=== PATIENT | male | born 1955 | race Hispanic/Latino ===

== ENCOUNTER → 2021-07-21 11:56 | Outpatient (CLI) | payer OTHER, SELFPAY ==
[2021-07-23 11:32] LABS: COVID19 Sendout Not Detected (Not Detect)
== END ==
PROVIDERS: Visit Provider Nurse Practitioner
DX: Z20.822 Contact with and (suspected) exposure to COVID-19 (principal)
CPT/HCPCS: 87635

== ENCOUNTER 2021-07-24 08:24 | Day surgery (SDC) | payer OTHER, SELFPAY ==
[2021-07-17 07:43] VITALS: BMI 25.2
[2021-07-24] VITALS (12 sets, daily range): BP systolic 94–165; BP diastolic 58–98; PULSE 56–88; RESP 14–18; TEMP 35.9–37.5; O2SAT 91–98; BMI 25.2
--- NOTE | 2021-07-24 06:09 | DI.RAD.S_ITS ---
PROCEDURE: XR KNEE LT 1TO2V INDICATIONS: post op total knee TECHNIQUE: 2 view(s) of the knee acquired. COMPARISON: None. FINDINGS: Bones: Patient is status post knee joint arthroplasty. Hardware components are in expected positions. Visualized bony structures are intact. Soft tissues: Overlying postoperative changes are noted. IMPRESSION: No significant abnormality. Dictated by: Axel Basilio M.D. on 07/24/2021 at 12:29 Approved by: Axel Basilio M.D. on 07/24/2021 at 12:30
[2021-07-24] MEDS: CELECOXIB 200 MG CAPSULE PO (08:50)
[2021-07-24] MEDS: PREGABALIN 75 MG CAPSULE PO (08:51)
[2021-07-24] MEDS: ACETAMINOPHEN 325 MG TABLET 975 MG PO (08:51)
[2021-07-24] MEDS: LACTATED RINGERS 1,000 ML 42 ML IV (08:57)
--- NOTE | 2021-07-24 09:08 | SUR.PREOP ---
ZOFRAN AND DECADRON NOT GIVEN PER ANESTHESIA. THESE WILL BE GIVEN IN OR.
--- NOTE | 2021-07-24 09:32 | PM.PREOP ---
Pre-operative Note COVID-19 COVID-19 status: Negative Result date/Date tested (Pos, Neg/Pending): 07/21/21 Interval Note History & Physical reviewed/Exam performed by Physician: Yes Changes to H&P: No
[2021-07-24] MEDS: CEFAZOLIN 1 GM VIAL 2 GM IV (09:57)
--- NOTE | 2021-07-24 10:16 | SUR.OPER ---
Supine on padded OR bed. Pillow under head, arms secured on padded armboards <90 degree abduction. Safety belt across torso. Non-operative leg secured with tape over blanket over lower leg. Operative leg secured in [place].
[2021-07-24] MEDS: BUPIVACAINE LIPOSOME 266 MG/20 ML VIAL INJ (10:20)
[2021-07-24] MEDS: TRANEXAMIC ACID 1,000 MG VIAL 1000 MG INJ ×2 (10:21→10:55)
[2021-07-24] MEDS: BUPIVACAINE 0.25% (PF) 60 ML, EPINEPHrine 0.3 MG INJ (10:21)
[2021-07-24] MEDS: MORPHINE 4 MG/ML INJ INJ (10:21)
--- NOTE | 2021-07-24 11:27 | P.OP_ITS ---
Operative Date/Time/Diagnoses Date of procedure: 07/24/21 Time of procedure: 11:28 Pre-op diagnosis: Left knee osteoarthritis Post-op diagnosis: same Procedure & Clinicians Procedure: Left total knee replacement Same procedure as scheduled: Yes Indications: The patient has had progressively worsening left knee pain with radiographic changes consistent with arthritis after an injury at work. Non- operative management has failed and the patient has requested total knee replacement. The risks, benefits and alternatives to surgery were discussed with the patient prior to proceeding. Risks discussed included, but were not limited to, failure to relieve pain, stiffness, infection, nerve damage, deep venous thrombosis, pulmonary embolism, stroke, coma, heart attack, permanent paralysis and , as well as the potential need for eventual revision of the prosthetic. Surgeon: Miguel Ángel Claire Dyed Yarn Operator: Brigette Escudero Click Yes if Unassisted: No Anesthesia Type: General, Spinal and Local Operative Notes Findings: Significant medial compartment osteoarthritis with bone exposed on both the tibia and the femur, moderately severe patellofemoral and lateral degenerative changes. Closure Type: primary Specimen(s): none sent Prosthetic devices, grafts, tissues, transplants, or devices: Implants used in this procedure were manufactured by the [employer] and included the BCS II Journey total knee replacement with a size 6 left Oxinium femoral component, size 5 left non porous tibial base plate, a 9 mm cross-linked polyethylene tibial insert and a 35 mm oval Luna II patella. Applied: implant(s) Estimated Blood Loss (mL): 25 Blood products transfused: none Tourniquet time (min): 44 Procedure in detail: The patient was seen in the pre-operative area, where the left knee was identified as the operative site and this was marked with my initials. The patient received pre-operative antibiotics, and was taken to the operating room and placed on the operative table in the supine position. After satisfactory anesthesia, a motor hotel manager out was performed. The left leg was encircled with a tourniquet about the proximal thigh, and the leg was prepared from the toes to the tourniquet with ChloroPrep in the usual fashion and draped through sterile drapes. The leg was elevated and exsanguinated with Eschmark ba ndage and the tourniquet inflated to 250 mmHg pressure. The knee was approached through an approximately 18 cm incision centered over the patella and carried into the knee through a medial parapatellar arthrotomy. The anterior osteophytes and soft tissues were removed. The rotational landmarks of Westfield's line and the transepicondylar axis were marked on the femur with electrocautery, and intramedullary guide holes for the femur and tibia were created. The distal femoral cut was made in 6 degrees of valgus using the intramedullary guide at the primary cut setting. The proximal tibial cut was then made using the intramedullary guide, taking 9 mm of bone off the less involved side. The extension gap was checked and the rotation of the femoral component confirmed with the gap balancing blocks. The anterior, posterior and chamfer cuts were then made. The posterior osteophytes and soft tissues were then removed. The posterior capsule was injected with part of a mixture of 60 ml 0.25% Marcaine mixed with 20 ml Exparel and 4 mg of morphine for post-operative pain control. The remainder of this mixture was injected into the capsule and subcutaneous tissues during cement curing. The tibia was prepared with the rotation set by an extra medullary guide. Trial tibial and femoral components were then placed and the intercondylar notch cut through the femoral trial. Range of motion was 0-135 degrees, with good stability throughout the range. The patella was then cut to accommodate the patellar prosthetic. There was no need for a lateral release. The trials were then removed, and the femoral hole plugged with a bone plug. The bone was prepared with pulsatile lavage, and dried with a sponge. Cement was applied and the final prosthetics placed. Excess cement was removed during and after cement curing. After confirming there was no extruded cement posteriorly, the final tibial insert was placed. The knee was copiously irrigated and the tourniquet deflated. Hemostasis was obtained. The capsule was closed with interrupted # 2 polyester sutures. The subcutaneous layer was closed with 3-0 Vicryl, and the skin with a running 3-0 V-Lock suture and Dermabond. An Aquacel Ag dressing was applied and the patient was taken to recovery having tolerated the procedure well. Complications: none Post-operative Condition: stable Disposition: PACU Plan for aftercare: The patient will be maintained on a standard total knee replacement protocol with weight bearing as tolerated. The patient will receive aspirin and sequential compression devices for DVT prophylaxis. The patient will be discharged home when safe for the home environment.
[2021-07-24] MEDS: OXYCODONE IR 5 MG TABLET PO ×2 (12:01→12:45)
--- NOTE | 2021-07-24 12:15 | SUR.PHASEI ---
1215 report given to floor OLEGARIO Heredia
[2021-07-24] MEDS: LACTATED RINGERS 1,000 ML 100 ML IV ×2 (12:32→22:14)
[2021-07-24] MEDS: IBUPROFEN 400 MG TABLET PO ×3 (12:45→20:25)
--- NOTE | 2021-07-24 13:26 | PC.NURSE ---
Patient alert, oriented rates pain to left knee 5/10 given another 5mg oxycodone. Patient tolerating general diet. Oriented to room and call light.
[2021-07-24] MEDS: ACETAMINOPHEN 325 MG TABLET 650 MG PO ×2 (14:34→20:25)
--- NOTE | 2021-07-24 14:55 | PT.IIE ---
Current Diagnoses Unilateral primary osteoarthritis, left knee (07/24/21) Surgery Performed Operation Date: 07/24/21 10:00 Actual Procedures p Total Knee Arthroplasty(Left) - Miguel Ángel Claire MD Medical History (Last Updated 07/17/21 @ 09:09 by Joanna Bass RN) Anxiety GERD (gastroesophageal reflux disease) HLD (hyperlipidemia) HTN (hypertension) Impaired fasting glucose BINU (obstructive sleep apnea) Osteoarthritis Physical Therapy Inpatient Evaluation/Re-Eval M1 PT/OT-IP Prior Functional Status Start: 07/24/21 13:29 Freq: NEEDED Status: Active Protocol: Document 07/24/21 14:55 AW (Rec: 07/24/21 15:51 AW [id number]) Medical Review Prior Functional Status Medical History Reviewed Yes Communication Pt is an effective verbal communicator. Mobility and Gait Pt is independent without AD but states he can only walk a few blocks at a time due to knee pain Activities of Daily Living and IADL's Independent. Prior Functional Level (Other details) Pt injured his knee at work in July 2019. Social History Household Members spouse,children Living Arrangements House Number of Floors (Floors) Two Floors Number of Stairs To Enter/Railing? 2 RIA through garage with no rail. Pt then climbs 8 steps with left rail + landing + another 10 steps with left rail to main level. Home Environment High Toilet,Walk in Shower, Built-In Shower Seat,Bidet Home Equipment Front Wheel Walker,Straight Cane,Hand Held Shower,Grab Bars In Shower Employment Status [employer] Employed Additional Social History Comment Pt has cryo cuff for home use. He lives with his , Katia, who has three weeks off from work to assist pt at home. Their 14 yo child also lives with them. M2 PT-IP Current Condition Start: 07/24/21 13:29 Freq: NEEDED Status: Active Protocol: Document 07/24/21 14:55 AW (Rec: 07/24/21 15:51 AW [id number]) Physical Therapy Current Condition Current Condition Evaluation Date 07/24/21 Treatment Diagnosis L TKA; difficulty in walking Onset Date 07/24/21 M3 PT-IP Subjective Start: 07/24/21 13:29 Freq: NEEDED Status: Active Protocol: Document 07/24/21 14:55 AW (Rec: 07/24/21 15:51 AW [id number]) Subjective Physical Therapy Visit Type Type Initial Evaluation Visit Start Time 14:18 Visit Stop Time 14:55 Total Visit Minutes 37 Notes Pt's spouse was present throughout evaluation Number of WEB SITE SPECIALIST Visits 0 Physical Therapy Visit Comments Patient Comments Pt is willing to participate with PT Patient Goals Return home with family support. Therapy Pain Assessment Pain When Pain Assessed During Mobility Pain Present Pain Present Pain Reported Location Left Knee Intensity 5 Scale Used 4/10 at rest; 5/10 during mobility Pain Management Techniques Apply Cold,Elevation,Timing of Activity with Medications M4 PT-IP Mobility and Gait Start: 07/24/21 13:29 Freq: NEEDED Status: Active Protocol: Document 07/24/21 14:55 AW (Rec: 07/24/21 15:51 AW [id number]) PT-Bed Mobility Assessment Supine to Sit Supine to Sit Minimal Assistance Scooting Scooting to Edge of Bed Standby Assistance PT-Transfer Assessment Sit to and From Stand Sit to and from Stand Contact Guard Assistance, Minimal Assistance Equipment Transfer Assistive Device Gait Belt,Front Wheeled Walker Orthotic/Prosthetic Devices or Brace: No Transfers Transfer Destination Chair Transfer Technique Stand Step Pivot Transfer Ability Level of Assist Contact Guard Assistance Comments Mobility Comments Pt was lying in bed as PT arrived. BP 1273/77 HR 70 SpO2 94% RA. He moved toward left EOB with min assist to support the operative leg in dependent position. Pt sat with UE support and then stood CGA, using FWW to shift weight laterally in standing. He transferred to the bedside chair CGA. BP 110/69 HR 82 as pt began to complain of mild lightheadedness. Symptoms cleared and pt agreed to stand again, requiring min assist and cues to rise from the chair. He ambulated a total of 20 feet in the room with FWW SBA/CGA before transferring back to the chair. Pt was left with legs elevated, fresh ice packs applied. Call light and tray table were within reach and pt agreed to get up only with nursing assist. Gait Assessment Gait Gait Assistance Required: Standby Assistance,Contact Guard Assist Distance (Feet) 20 Able to Maintain Weight Bearing Status Yes During Gait Assistive Devices Assistive Device Gait Belt,Front Wheeled Walker Orthotic/Prosthetic Devices or Brace: No Gait Deviations General Gait Pattern Antalgic,Decreased Stride Length,Decreased Feet Clearance,Step-to Gait Factors Limiting Gait Function Factors Limiting Gait Function Decreased Strength,Limited Range of Motion,Pain Comments Gait Comments Pt ambulated with short step length and step-to pattern. He was safe with FWW. He required cues not to hold his breath. Stair Climbing Assessment Comments Stair Climbing Comments Not assessed. PT-Balance Assessment Sitting Balance and Reactions Static Sitting Balance Ability Normal Dynamic Sitting Balance Ability Normal Standing Balance and Reactions Static Standing Balance Ability Good Dynamic Standing Balance Ability Good Device Used FWW M5 PT-IP Objective Assessments Start: 07/24/21 13:29 Freq: NEEDED Status: Active Protocol: Document 07/24/21 14:55 AW (Rec: 07/24/21 15:51 AW [id number]) Orientation Orientation/Cognition Level of Alertness Alert Orientation Name,Day of Week,Place, Situation Language Function Ability No Deficits Noted Safety Awareness Understands Safety Issues Memory Description No Deficits Noted Gross Range of Motion Lower Extremity ROM Assessment Left Impaired Strength Lower Extremity Strength Assessment Left Impaired Comments Strength Comments RLE grossly 5/5 Sensation Assessment Sensation Gross Sensation WNL M6 PT-IP Treatment Start: 07/24/21 13:29 Freq: NEEDED Status: Active Protocol: Document 07/24/21 14:55 AW (Rec: 07/24/21 15:51 AW [id number]) Physical Therapy Treatment Exercises Exercises Ankle Pumps,Quad Sets,Heel Slides,Passive Knee Extension Hang,Seated Knee Flexion/ Extension Education Education Provided Weight Bearing Status,Post-Op Packet,Safety Other Treatments Other Treatment Performed Educated pt on PT plan of care , importance of ROM exercise in early phase of rehab, and rationale for/safe use of FWW. M7 PT-IP Assessment and Plan Start: 07/24/21 13:29 Freq: NEEDED Status: Active Protocol: Document 07/24/21 14:55 AW (Rec: 07/24/21 15:51 AW [id number]) PT Summary Assessment and Plan Potential Rehabilitation Potential Good Status of Condition at Evaluation Evolving Summary Impairments Pain,ROM,Strength,Balance,Bed Mobility,Transfers,Gait Assessment Summary Alfred is a 65 yo man seen for PT evaluation on POD0 following L TKA. He is independently mobile at baseline and required CGA/min assist for mobility with FWW on assessment. He has 18 stairs to living level at home which may be a barrier to home access. PT anticipates he will be safe to discharge home with assist and outpatient PT (already scheduled) once he completes stair training satisfactorily and is medically cleared. Goals Bed Mobility Goal Independent Transfer Goal Standby Assistance,Front Wheeled Walker Gait Goal Standby Assistance,Front Wheel Walker Gait Distance 200 Other Goals - up/down 18 steps with L rail ascending SBA Days to Meet Goals 3 Frequency of Treatment Frequency Of Treatment Twice a Day Treatment Plan Physical Therapy Treatment Plan Bed Mobility Training,Transfer Training,Gait Training, Therapeutic Exercise,Balance Retraining,Post Op Education, Discharge Planning,Hot or Cold Pack Other Recommendations and Next Treatment gait and stair training; Focus involve pt's as needed for assist on stairs Weight Bearing Status Weight Bearing Status Weight Bear as Tolerated Allowed Weight Bearing Amount (enter % WBAT LLE or #) (%) Recommendations To Nursing Amount of Assist Needed 1 Person Assist Discharge Recommendations PT Discharge Recommendations Home with Assistance, Outpatient PT Transportation Needs at Discharge Private Vehicle
[2021-07-24] MEDS: ASPIRIN EC 81 MG TABLET PO (20:25)
[2021-07-24] MEDS: DOCUSATE 100 MG CAPSULE PO (20:25)
[2021-07-25] VITALS: BP 118/76; PULSE 72; RESP 16; TEMP 36.3; O2SAT 95
[2021-07-25] MEDS: IBUPROFEN 400 MG TABLET PO ×3 (00:32→08:04)
[2021-07-25] MEDS: OXYCODONE IR 5 MG TABLET PO ×2 (00:39→03:53)
--- NOTE | 2021-07-25 02:28 | PC.NURSE ---
Patient is alert and oriented. Breath sounds CTA with RA sat of 95%. HRR. Denied nausea. BT hypoactive and denies flatus as yet. Voiding per urinal; denies dysuria, frequency or urgency. Is able to move self in bed. Gait not assessed but per PT notes is uses a walker and 1 assist. Aquacel dressing to left knee covered with juan carlos is CDI. Initially stated pain only 2/10 when given scheduled Ibuprofen but after moving leg stated pain had increased to 6/10 so was medicated with oxycodone; has ice packs to knee. CMS is intact although limited ROM. Wearing bilateral calf SCD's. Fall risk score is moderate and bed alarm is activated.
[2021-07-25] MEDS: hydrOXYzine pamoate 25 MG CAPSULE PO (03:54)
[2021-07-25 03:58] VITALS: BP 118/77; PULSE 75; RESP 18; TEMP 36.7; O2SAT 95
[2021-07-25 06:54] LABS: Hematocrit 40.2 % (41-53); Hemoglobin 13.8 g/dL (13.5-17.5)
--- NOTE | 2021-07-25 07:46 | PM.DS.1 ---
History of Present Illness History of Present Illness Date Patient Seen: 07/25/21 Time Patient Seen: 07:46 Chief complaint: Left knee pain status post left TKA Narrative: Patient is complaining of moderate left knee pain this morning. He was sitting a lot in his chair yesterday and worked with physical therapy. He denies any fevers, chills, night sweats. He did have 1 episode of dizziness with sitting to standing yesterday. This has since resolved. No new numbness or tingling. Overall, he is feeling well like to be discharged home today. Discharge Providers Provider Discharge Date: 07/25/21 Primary care physician: Doctor Hansa MD Consults: 07/24/21 12:24 Consult to Discharge Planning Routine Comment: Consult to Physical Therapy Evaluate & Treat Comment: Physician Instructions: postop TKA protocol Discharge provider: Mildred Hernandez PA-C Summary Hospital Course Discharge Diagnosis: Left knee osteoarthritis Hospital Course: Operative Date/Time Date of procedure: 07/24/21 Time of procedure: 11:28 Procedure: Left total knee replacement Same procedure as scheduled: Yes Indications: The patient has had progressively worsening left knee pain with radiographic changes consistent with arthritis after an injury at work. Non-operative management has failed and the patient has requested total knee replacement. The risks, benefits and alternatives to surgery were discussed with the patient prior to proceeding. Risks discussed included, but were not limited to, failure to relieve pain, stiffness, infection, nerve damage, deep venous thrombosis, pulmonary embolism, stroke, coma, heart attack, permanent paralysis and , as well as the potential need for eventual revision of the prosthetic. Surgeon: Miguel Ángel Claire Certified Medical Technician Assistant: Brigette Escudero Click Yes if Unassisted: No Anesthesia Type: General, Spinal and Local Operative Notes Findings: Significant medial compartment osteoarthritis with bone exposed on both the tibia and the femur, moderately severe patellofemoral and lateral degenerative changes. Closure Type: primary Specimen(s): none sent Prosthetic devices, grafts, tissues, transplants, or devices: Implants used in this procedure were manufactured by the [employer] and included the BCS II Journey total knee replacement with a size 6 left Oxinium femoral component, size 5 left non porous tibial base plate, a 9 mm cross-linked polyethylene tibial insert and a 35 mm oval Luna II patella. Applied: implant(s) Estimated Blood Loss (mL): 25 Blood products transfused: none Tourniquet time (min): 44 Status at Discharge Cognitive/behavioral status at discharge: oriented Functional status at discharge: uses cane/walker Overall status at discharge: patient is progressing back to baseline Exam Vital Signs (past 8 hours): - 07/25/21 00:00 07/25/21 03:58 Temperature 97.3 F L 98.0 F Pulse Rate 72 75 Respiratory Rate 16 18 Blood Pressure 118/76 118/77 Pulse Oximetry 95 95 Oxygen Delivery Method Room Air Oxygen Flow Rate 0 Narrative Exam Narrative: Pleasant 65-year-old male, resting comfortably in bed, no acute distress. Dressing is clean, dry, intact. Bilateral lower extremity motor functions are grossly intact. Sensation is grossly intact to light touch in bilateral lower extremities. Bilateral calves are soft, nontender palpation. Objective Labs Result Diagrams: 07/25/21 06:43 Labs: Laboratory Results - last 24 hr 07/25/21 06:43 Hgb 13.8 Hct 40.2 L PFSH Medical History Anxiety GERD (gastroesophageal reflux disease) HLD (hyperlipidemia) HTN (hypertension) Impaired fasting glucose BINU (obstructive sleep apnea) Osteoarthritis Surgical History History of vasectomy Hx of appendectomy Hx of LASIK Hx of left knee surgery Hx of tonsillectomy Social History household members: spouse and children Smoking Status: Never smoker alcohol intake: current Discharge Assessment & Plan Assessment and Plan Plan of Treatment: Stable status post left TKA -planing on DC home today after cleared by PT -mobilize with PT. Weightbearing as tolerated with front wheel walker -continue with current pain management and DVT prophylaxis Discharge Plan Discharge Plan Patient Disposition: Home Discharge orders & Medications Discharge Orders: Discharge (Order); Ordered 07/25/21 Ordered By: Mildred Hernandez Prescriptions: New acetaminophen 500 mg capsule 500 mg PO Q4H MDD Max 6 tabs per day PRN (Reason: fever or pain) Qty: 90 RF: 0 aspirin 81 mg Tablet,Delayed Release (Dr/Ec) 81 mg PO BID PRN (Reason: X6 weeks to prevent blood clots) Qty: 90 RF: 0 docusate sodium 100 mg Capsule 100 mg PO BID PRN (Reason: Constipation from narcotic pain med) Qty: 30 RF: 0 hydroxyzine pamoate 25 mg Capsule 25 mg PO Q6HR PRN (Reason: Spasms or Nausea) Qty: 30 RF: 0 ibuprofen 400 mg Tablet 400 mg PO Q4HR MDD Max 2400 mg per day PRN (Reason: Pain/inflammation) Qty: 90 RF: 0 oxycodone 5 mg Tablet 5 mg PO Q3HR PRN (Reason: Pain, Moderate (4-6)) Qty: 42 RF: 0 Continued atorvastatin 20 mg Tablet 20 mg PO DAILY RF: 0 metoprolol succinate 50 mg Tablet Extended Release 24 Hr 50 mg PO DAILY RF: 0 famotidine 20 mg Tablet 20 mg PO DAILY RF: 0 amlodipine 10 mg Tablet 10 mg PO DAILY RF: 0 Discontinued aspirin [Aspir-Low] 81 mg Tablet,Delayed Release (Dr/Ec) 81 mg PO DAILY RF: 0 Follow up/Referrals: Miscellaneous,MD Mikala [Primary Care Provider] - Miguel Ángel Claire MD [Physician] - (10-14 days for postoperative visit) Diet/Activity/Treatments Diet: Diet as Tolerated and Regular Other treatments: Medications: -Aspirin 81mg twice daily x6 weeks to prevent blood clots. -OTC Tylenol 500 mg 1 tablet every 4 hours as needed for pain/fever. Max 6 tablets per day. -Ibuprofen 400 mg 1 tablet every 4 hours as needed for pain/inflammation. Max 2,400 mg per day. -Oxycodone 5 mg take 1-2 tablets every 4 hours as needed for moderate-severe pain (narcotic pain medication). -As needed medications: -Ducolax and /or MiraLax as needed for constipation from narcotic pain medications. -Pepcid AC as needed for stomach upset (usually from aspirin or ibuprofen). Dressing/Wound care: -Remove the Maicol wrap 48 hours after surgery. -Keep Aquacell dressing in place until postoperative follow-up office visit. -Okay to shower. Keep wound out of direct water stream. No soaking or submerging until all the scabs fall off (approximately 6 weeks). -Please call the office if dressing becomes wet, soiled, or saturated. Activities: -Weight-bearing as tolerated. Use front wheeled walker, and progress to cane when safe. -Continue with home exercises as directed by your physical therapist. -Elevate ?toes above the nose if you have significant swelling in your lower leg. (A wedge pillow is easiest.) -Ice your incision as needed for pain/inflammation/swelling. Protect your skin with a folded pillowcase. Follow-up: -Follow-up with your surgeon or PA in the office in 10-14 days after surgery. -Follow-up with your surgeon 6 weeks postoperatively. Call the office if you have chest pain, shortness of breath, significant swelling that will not resolve with elevating, fever over 101?, significantly worsening pain. [facility]: [phone] Skin/Wound/Dressing Care Report to your healthcare provider any signs of infection, such as:: chills, fever, night sweats, unusual drainage and unusual redness Visit Report/Discharge Packet Instructions: DI for Knee Replacement Stand Alone Forms: Surgery Discharge Discharge Data Primary Care Provider: Miscellaneous,Doctor Attending Provider: Miguel Ángel Claire
[2021-07-25 08:00] VITALS: BP 131/79; PULSE 77; RESP 18; TEMP 36.7; O2SAT 95
[2021-07-25] MEDS: FAMOTIDINE 20 MG TABLET PO (08:03)
[2021-07-25] MEDS: ASPIRIN EC 81 MG TABLET PO (08:03)
[2021-07-25] MEDS: ACETAMINOPHEN 325 MG TABLET 650 MG PO (08:03)
[2021-07-25 08:04] VITALS: BP 127/78; PULSE 72
[2021-07-25] MEDS: DOCUSATE 100 MG CAPSULE PO (08:04)
[2021-07-25] MEDS: METOPROLOL ER 50 MG TABLET PO (08:04)
[2021-07-25] MEDS: ATORVASTATIN 20 MG TABLET PO (08:04)
[2021-07-25] MEDS: AMLODIPINE 5 MG TABLET 10 MG PO (08:04)
--- NOTE | 2021-07-25 10:01 | PC.NURSE ---
A&Ox4. VSS. Pain 4/10 well controlled with scheduled tylenol and ibuprofen. PT okayed for D/C. Discharge paperwork reviewed, questions answered. IV removed. Patient wheeled off of unit at 10:00, driving home.
--- NOTE | 2021-07-25 12:19 | PT.IPTN ---
Current Diagnoses Unilateral primary osteoarthritis, left knee (07/24/21) Surgery Performed Operation Date: 07/24/21 10:00 Actual Procedures p Total Knee Arthroplasty(Left) - Miguel Ángel Claire MD Physical Therapy Treatment Note M2 PT-IP Current Condition Start: 07/24/21 13:29 Freq: NEEDED Status: Discharge Protocol: Document 07/24/21 14:55 AW (Rec: 07/24/21 15:51 AW [id number]) Physical Therapy Current Condition Current Condition Evaluation Date 07/24/21 Treatment Diagnosis L TKA; difficulty in walking Onset Date 07/24/21 M3 PT-IP Subjective Start: 07/24/21 13:29 Freq: NEEDED Status: Discharge Protocol: Document 07/25/21 12:09 HH (Rec: 07/25/21 12:19 HH [email or web address]) Subjective Physical Therapy Visit Type Type Treatment Note Visit Start Time 08:20 Visit Stop Time 08:55 Total Visit Minutes 35 Number of CLIENT DELIVERY SPECIALIST Visits 0 Physical Therapy Visit Comments Patient Comments Pt is willing to participate with PT Patient Goals Return home with family support. Therapy Pain Assessment Pain When Pain Assessed During Mobility Pain Present Pain Present Pain Reported Location Left Knee Intensity 3 Scale Used Numeric (0 - 10) Pain Management Techniques Apply Cold,Elevation,Timing of Activity with Medications M4 PT-IP Mobility and Gait Start: 07/24/21 13:29 Freq: NEEDED Status: Discharge Protocol: Document 07/25/21 12:09 HH (Rec: 07/25/21 12:19 HH [email or web address]) PT-Bed Mobility Assessment Supine to Sit Supine to Sit Standby Assistance Scooting Scooting to Edge of Bed Standby Assistance PT-Transfer Assessment Sit to and From Stand Sit to and from Stand Contact Guard Assistance Equipment Transfer Assistive Device Gait Belt,Front Wheeled Walker Orthotic/Prosthetic Devices or Brace: No Transfers Transfer Destination Chair Transfer Technique Stand Step Pivot Transfer Ability Level of Assist Contact Guard Assistance Comments Mobility Comments pt was in bed upon PT arrival. No discomfort at rest. He was excited to participate PT. He then sat up from supine SBA followed by using the walker to stand up with a staggered stance CGA. He then walked to bathroom with step to pattern and voided SBA. He was able to stand without support for self car by the sink after. He then walked 150 ft with FWW to staircase with SBA/CGA. He was able to climb 3 steps with L rail x 5 sets with CGA. He also completed with a SPC on L and ENGINEERING PROFESSOR on R. He then returned to room and sat back down on bedside chair. No increase discomfort noted. Gait Assessment Gait Gait Assistance Required: Standby Assistance,Contact Guard Assist Distance (Feet) 300 Able to Maintain Weight Bearing Status Yes During Gait Assistive Devices Assistive Device Gait Belt,Front Wheeled Walker Orthotic/Prosthetic Devices or Brace: No Gait Deviations General Gait Pattern Antalgic,Decreased Stride Length,Decreased Feet Clearance,Step-to Gait Factors Limiting Gait Function Factors Limiting Gait Function Decreased Strength,Limited Range of Motion,Pain Comments Gait Comments step to and step over pattern. No LOB Stair Climbing Assessment Evaluation Level of Assist On Stairs Contact Guard Assistance Devices Stair Climbing Assistive Devices Straight Cane,Front Wheel Walker,Left Railing Technique/Endurance Stair Climbing Direction Ascend and Descend Stair Climbing Technique Step Over Step,Step to Step Number of Steps Climbed 4 Stair Climbing Set # Repetitions (reps) 5 Comments Stair Climbing Comments lead with R to ascend, lead with L by doing backward to descend. use SPC on LUE and RHA as well for his steps by main entrance. PT-Balance Assessment Sitting Balance and Reactions Static Sitting Balance Ability Normal Dynamic Sitting Balance Ability Normal Standing Balance and Reactions Static Standing Balance Ability Good Dynamic Standing Balance Ability Good Device Used FWW M5 PT-IP Objective Assessments Start: 07/24/21 13:29 Freq: NEEDED Status: Discharge Protocol: Document 07/24/21 14:55 AW (Rec: 07/24/21 15:51 AW [id number]) Orientation Orientation/Cognition Level of Alertness Alert Orientation Name,Day of Week,Place, Situation Language Function Ability No Deficits Noted Safety Awareness Understands Safety Issues Memory Description No Deficits Noted Gross Range of Motion Lower Extremity ROM Assessment Left Impaired Strength Lower Extremity Strength Assessment Left Impaired Comments Strength Comments RLE grossly 5/5 Sensation Assessment Sensation Gross Sensation WNL M6 PT-IP Treatment Start: 07/24/21 13:29 Freq: NEEDED Status: Discharge Protocol: Document 07/24/21 14:55 AW (Rec: 07/24/21 15:51 AW [id number]) Physical Therapy Treatment Exercises Exercises Ankle Pumps,Quad Sets,Heel Slides,Passive Knee Extension Hang,Seated Knee Flexion/ Extension Education Education Provided Weight Bearing Status,Post-Op Packet,Safety Other Treatments Other Treatment Performed Educated pt on PT plan of care , importance of ROM exercise in early phase of rehab, and rationale for/safe use of FWW. M7 PT-IP Assessment and Plan Start: 07/24/21 13:29 Freq: NEEDED Status: Discharge Protocol: Document 07/25/21 12:09 HH (Rec: 07/25/21 12:19 HH [email or web address]) PT Summary Assessment and Plan Potential Rehabilitation Potential Good Status of Condition at Evaluation Evolving Summary Impairments Pain,ROM,Strength,Balance,Bed Mobility,Transfers,Gait Assessment Summary Josue is progressing very well and able to walk >300 ft with FWW SBA/CGA. He also climbed 5 sets of 4 steps with L rail and without rail (SPC and ENGINEERING PROFESSOR) . He was very safe and steady who shows good understanding of post op guidelines. He is safe to be DC at home Frequency of Treatment Frequency Of Treatment Discharge Weight Bearing Status Weight Bearing Status Weight Bear as Tolerated Allowed Weight Bearing Amount (enter % WBAT LLE or #) (%) Recommendations To Nursing Amount of Assist Needed 1 Person Assist Discharge Recommendations PT Discharge Recommendations Home with Assistance, Outpatient PT Transportation Needs at Discharge Private Vehicle
--- NOTE | 2021-07-25 14:02 | CM.DANOTE ---
DCP/Assessment: Reviewed chart. Patient is a 65yr old male admitted to [facility] for left TKA performed on 07-24-21 with . No PCP listed. Primary payor is 1)[employer]. Attempted to meet with patient this AM. Patient had been cleared by therapy and d/c'd home. RN reports patient had no d/c planning needs. P: Home today. KJS Discharge Planning/Care Management CM Discharge Assessment Start: 07/25/21 14:00 Freq: Status: Active Protocol: Document 07/25/21 14:00 KJS (Rec: 07/25/21 14:02 KJS [id number]) Discharge Planning Assessment Assigned Personal Health Coach MABLE Clay Contact Information Key Arriola (spouse) # [phone] Advance Directives? No History Provided By Patient,Medical Record Prior Living Arrangements House Household Members spouse,children Type of transporation used prior to Drives own vehicle admit Independent with ADL's Yes Is patient alert and oriented? Yes Patient/Family Preference OP PT Therapy Barriers to Discharge No Discharge Plan Home Referrals Initiated None needed Review Status In Process Next Review Type Continued Stay Review Pre-Anesthesia Assessment Start: 07/17/21 07:43 Freq: Status: Complete Protocol: Document 07/17/21 07:43 CAB (Rec: 07/17/21 09:23 CAB [id number]) Pre-Anesthesia Assessment Preferred Name Josue Patient Information Reviewed Via Phone Assessment Assessment Completed With Patient H&P Completed Within 30 Days Yes Diagnostic Results BMP/CMP,CBC,EKG Comment Outside labs/EKG scanned, COVID screen @ [facility]-needs to schedule Primary Care Provider Meli Kim Seen Specialist in Last 12 Months Yes Specialist Seen Orthopedist Primary Language Malaysian Preferred Language Malaysian General Scrap Worker Required No Height 172.72 cm Weight 75.296 kg Body Mass Index (BMI) 25.2 Hearing Ability Normal Visual Assist Glasses Dentition Type Teeth, Natural Present Barriers to Learning None Other Aids No Hx Anesthesia Reactions No Hx Family Anesthesia Reaction No Hx Malignant Hyperthermia No Hx Blood Transfusions No Anesthesia Review Requested No alcohol intake current Alcohol Intake Frequency Other: Occasional Smoking Status Never smoker Substance Use Type does not use Pain Present Pain Reported Musculoskeletal Symptoms Abnormal Gait,Back Pain, Difficulty Walking,Joint Pain History of Falling (Recent or History of No ) Patient is completely paralyzed or No completely immobile Mental Status Oriented to own ability Is patient on oxygen? No Does patient have LEDEZMA/SOB No Hx Sleep Apnea Yes CPAP/BIPAP use prescribed not used Currently Taking a Beta Adam Yes: Metoprolol Can You Climb a Flight of Stairs Without Yes SOB Hx Chest Pain No Hx SOB No Hx Syncope or Dizziness No Anti-Coagulant Therapy No Has a Oven Equipment Repairer No Cardiac Testing No Hx Pacemaker/ICD No Pacemaker Rep Required? No Cardiac Clearance Received Not Applicable Diet Type At Home Regular dysphagia No Gastrointestinal Symptoms Reflux Urinary Catheter Present No Hx Urinary Self Catheterization No Diabetes No: Impaired fasting glucose Hx Drug Resistant Organism No Presence of External or Internal Medical No Devices Have you had any close contact with No someone diagnosed with COVID-19? Received a COVID vaccine? Yes Received all doses? Yes Marital Status Lives With spouse,children Prior Living Arrangements House Number of Floors (Floors) Two Floors Support System Spouse Patient Discharge Plan Description Return Home Comment Not advised on length of stay per surgeon Feels Safe in Current Environment Yes Been Physically Hurt or Threatened By a No Person in Current Environment Do you have thoughts of harming yourself None or others? Are you currently considering suicide? No Do you have a plan to hurt yourself or No Plan others? Do You Have Any Spiritual Beliefs That No May Affect Your HC Choices? Do You Have Any Cultural Practices That No May Affect Your HC Choices? Who Can We Speak to About Patient's Care Family, friends Identifying Code for Release of Patient Declines to issue Information Health Care Proxy/Next of Kin Katia () Health Care Proxy Emergency Contact Name Katia () Emergency Contact Advance Directives? No Power of Community Organization Worker No PAC Instructions Durable medical equipment, Medications to take/avoid, Nasal antibiotic,No ETOH/ petroleum product on skin DOS, NPO,Post-op transportation,Pre -surgical wash,Sturdy shoes/ comfortable clothes,Do not bring valuables and remove jewelry
== END 2021-07-25 10:00 | disposition home or self-care (01) ==
LOC: OR 09:35 → AC 11:54
PROVIDERS: Referring Provider Orthopaedic Surgery; Visit Provider Orthopaedic Surgery
PROC: 0SRD0JZ Replacement of Left Knee Joint with Synthetic Substitute, Open Approach (ICD-10-PCS; CPT 27447; principal; 2021-07-24 10:00)
DX: M17.12 Unilateral primary osteoarthritis, left knee (principal); K21.9 Gastro-esophageal reflux disease without esophagitis; F41.9 Anxiety disorder, unspecified; E78.5 Hyperlipidemia, unspecified; I10 Essential (primary) hypertension; G47.30 Sleep apnea, unspecified
CPT/HCPCS: 27447; 36415; 73560; 85014; 85018; 97110; 97116; 97161; 97530; C1776; A9270; C9290; J0171; J0690; J1100; J2250; J2270; J2405; J2704; J3010